=== PATIENT | female | born 1945 | race Caucasian/White ===

== ENCOUNTER → 2023-10-09 14:13 | Outpatient (REF) | payer OTHER, SELFPAY | LOC: WOUND 14:13 | PROVIDERS: ATTENDING PHYSICIAN Surgery; REFERRING PHYSICIAN Internal Medicine | DX: L97.811 Non-pressure chronic ulcer of other part of right lower leg limited to breakdown of skin (principal); I25.10 Atherosclerotic heart disease of native coronary artery without angina pectoris; E11.65 Type 2 diabetes mellitus with hyperglycemia; D86.9 Sarcoidosis, unspecified; Z79.52 Long term (current) use of systemic steroids | CPT/HCPCS: 99212 ==

== ENCOUNTER → 2023-11-04 06:41 | Outpatient (REF) | payer OTHER, SELFPAY | LOC: PAVMRI 06:41 | PROVIDERS: ATTENDING PHYSICIAN Pain Medicine Interventional Pain Medicine; FAMILY PHYSICIAN Internal Medicine | DX: M54.16 Radiculopathy, lumbar region (principal) | CPT/HCPCS: 72148 ==

== ENCOUNTER → 2024-01-27 12:41 | Outpatient (REF) | payer OTHER, SELFPAY | LOC: HWRCS 12:41 | PROVIDERS: ATTENDING PHYSICIAN Internal Medicine Cardiovascular Disease; FAMILY PHYSICIAN Internal Medicine | DX: I65.23 Occlusion and stenosis of bilateral carotid arteries (principal); Z95.5 Presence of coronary angioplasty implant and graft; I50.32 Chronic diastolic (congestive) heart failure; R06.02 Shortness of breath | CPT/HCPCS: 93306 ==

== ENCOUNTER 2024-02-04 11:14 | Emergency (ER) | payer OTHER, SELFPAY ==
[2024-02-04 11:17] VITALS: BP 161/68
--- NOTE | 2024-02-04 12:08 | ED.GENMED ---
History of Present Illness
<Hayley Pena PA-C - Last Filed: 02/04/24 13:32>
General
Chief Complaint: Musculo-Skeletal Complaint
Source: patient
Exam Limitations: none
Time Seen by Provider: 02/04/24 12:08
Nursing documentation reviewed up to this point in time: agreed with
Travel History
Have you had any contact with someone who has COVID-19?: No
Do you have any symptoms of coronavirus? Fever > 100 degrees, chills, cough, shortness of breath, sore throat, loss of taste or smell, muscle aches, or headache?: No
History of Present Illness
History of Present Illness:
78-year-old female with past medical history of A-fib on Eliquis, osteoarthritis, left hip fracture status post hip replacement, CHF, COPD chronically on oxygen, CAD resenting emergency department today with right hip pain. Patient states that 2
days ago, she was walking when suddenly out of nowhere she started to get right hip pain. Patient now states that she has significant pain when walking and has some trouble walking. Patient does not use a wheelchair at baseline but does present
today from triage in wheelchair. Patient denies any falls, any trauma to the hip. Patient denies any fevers or chills, lightheadedness, dizziness, rash.
Past History
<Hayley Pena PA-C - Last Filed: 02/04/24 13:32>
Past History
ED Past Medical History: Arrthythmia (Atrial fibrillation), CAD, HTN and Other (Sarcoidosis)
ED Past Surgical History: Appendectomy and Cardiac (Angioplasty with stents)
Social History
Tobacco: Former smoker
Review of Systems
<Hayely Pena PA-C - Last Filed: 02/04/24 13:32>
Review of Systems
All Other Systems: ROS reviewed and negative except as documented in HPI and ROS
Phy Exam
<Hayley Pena PA-C - Last Filed: 02/04/24 13:32>
Physical Exam
Physical Exam:
General: Patient is well appearing and in no acute distress; non-toxic
Skin: Warm and dry, no rashes or lesions, no areas of ecchymosis overlying the right hip or right flank region
Head: Normocephalic, atraumatic
Eyes: Sclera non-icteric. EOMs intact. PERRLA.
Cardiac: Regular rate.
Peripheral Vascular: No lower extremity swelling or edema. 2+ dorsalis pedis pulses b/l.
Pulm: Normal respiratory effort, chronically on oxygen via nasal cannula
Musculoskeletal: Pain with passive adduction, abduction, internal and external rotation of right hip. No bony deformities. No palpable bony tenderness.
Neuro: CN II-XII intact, no focal neurologic deficits.
Psychiatric: Appropriate mood and affect.
Course
<Hayley Pena PA-C - Last Filed: 02/04/24 13:32>
Orders/Labs/Results
Orders:
Orders
02/04/24 11:19
Hip, Right 2-3 Views [CR Hip - RT w/wo Pel 2-3 Vw*] Urgent
Comment:
Reason For Exam: pain
Include a pelvis x-ray?: Yes
02/04/24 12:46
Case Management Consult ONCE
Case Management Consult: VN/Home Care
02/04/24 12:49
PT Consult [Pt Eval And Treat] Urgent
Activity Level: Ambulate
Vital Signs
Initial and Last Documented VS:
Initial Vital Signs
Temp Pulse Resp BP Pulse Ox
97.9 F 91 18 161/68 95
02/04/24 11:17 02/04/24 11:17 02/04/24 11:17 02/04/24 11:17 02/04/24 11:17
Last Documented Vital Signs
Temp Pulse Resp BP Pulse Ox
97.9 F 91 18 161/68 95
02/04/24 11:17 02/04/24 11:17 02/04/24 11:17 02/04/24 11:17 02/04/24 11:17
<Dilan Askew DO - Last Filed: 02/04/24 13:12>
Orders/Labs/Results
Orders:
Orders
02/04/24 11:19
Hip, Right 2-3 Views [CR Hip - RT w/wo Pel 2-3 Vw*] Urgent
Comment:
Reason For Exam: pain
Include a pelvis x-ray?: Yes
02/04/24 12:46
Case Management Consult ONCE
Case Management Consult: VN/Home Care
02/04/24 12:49
PT Consult [Pt Eval And Treat] Urgent
Activity Level: Ambulate
Vital Signs
Initial and Last Documented VS:
Initial Vital Signs
Temp Pulse Resp BP Pulse Ox
97.9 F 91 18 161/68 95
02/04/24 11:17 02/04/24 11:17 02/04/24 11:17 02/04/24 11:17 02/04/24 11:17
Last Documented Vital Signs
Temp Pulse Resp BP Pulse Ox
97.9 F 91 18 161/68 95
02/04/24 11:17 02/04/24 11:17 02/04/24 11:17 02/04/24 11:17 02/04/24 11:17
<Hayley Pena PA-C - Last Filed: 02/04/24 13:32>
MDM/Problems Addressed
Differential Diagnosis Includes:
ddx include osteoarthritis, musculoskeletal sprain/sprain, lumbar radiculopathy, bursitis
MDM/Problems Addressed:
right hip pain
Chronic conditions affecting care:
Asthma, COPD,CAD, GERD, chronic anemia,
<Hayley Pena PA-C - Last Filed: 02/04/24 13:32>
*Radiology
Radiology exam reviewed: preliminary read by ED provider (no acute fracture or dislocation)
*Pulse Oximetry
Patient hypoxic: no
*Critical Care Note
Total Time (30-74mins, 75-104mins- exclusive of procedures): Not Applicable
Data Reviewed
Review of Other/Old Records Reveals: Records (Reviewed with patient and ER physician documentation from 02/06/2021)
Source: patient and records
Prescriptions/Medications Considered But Not Given:
Considered medication for pain however patient took oxycodone prior to arrival and declining further pain medication including Tylenol at this time
<Hayley Pena PA-C - Last Filed: 02/04/24 13:32>
Patient Management
Escalation/DeEscalation of care consider admission/obs:
78-year-old female with past medical history of A-fib on Eliquis, osteoarthritis, left hip fracture status post hip replacement, CHF, COPD chronically on oxygen, CAD resenting emergency department today with right hip pain. She did not have any
falls or any trauma. She has difficulty walking because of the pain. X-ray demonstrates a moderate osteoarthritis of the right hip but no evidence of fracture or dislocation. Patient made aware of results. Considering patient's ambulatory
dysfunction, I did offer physical therapy evaluation and case management evaluation considering patient is a high fall risk at this time. Patient declining these therapies and saying that her will help her ambulate at home. Advised patient
to follow-up with her orthopedist. Patient stable for discharge at this time
ED Attending Note
<Hayley Pena PA-C - Last Filed: 02/04/24 13:32>
-
Portions of this chart may have been created with voice recognition software.� Occasional wrong word or��sound alike� substitutions may have occurred due to the inherent limitations of voice recognition software.
<Dilan Askew DO - Last Filed: 02/04/24 13:12>
ED Attending Note
Patient seen and examined by attending physician: Yes
I performed a history and physical exam of patient and discussed management with resident, I reviewed resident's note and agree with documented findings and plan of care.: Yes
ED Attending Note:
I have reviewed and agree with patient treatment plan by Hayley Pena. My exam revealed 78-year-old female with full range of motion right hip, but with pain. She denies any fall or injury. She had a left hip fracture partial replacement. She
follows with Dr. Walter for pain management. No fracture seen. Family [facility] pain medicine and physical therapy evaluation.
Discharge Plan
Departure
Patient Disposition: Home (Routine Discharge)
Date of Disposition: 02/04/24
Time of Disposition: 13:08
Patient with high blood pressure during this ER visit?: Yes
Discharge Problem:
Arthritis pain of hip
Instructions: Hip pain in adults, BLOOD PRESSURE, Fall Prevention for Older Adults
Prescriptions:
No Action
omeprazole 20 MG capsule,delayed release(DR/EC)
20 mg PO Q48H
diltiazem HCl 240 MG capsule,extended release 24hr
240 mg PO DAILY 0RF
montelukast 10 MG tablet
10 mg PO HS
cholecalciferol (vitamin D3) [Vitamin D3] 1,000 UNIT capsule
2,000 unit PO DAILY
metformin 1,000 tablet extended release 24hr
1,000 mg PO BID
Hold Instructions: Resume on 12/11/22.
prednisone 10 MG tablet
10 mg PO DAILY
azithromycin 250 MG tablet
250 mg PO DAILY
albuterol sulfate [Ventolin HFA] 90 MCG/PUFF HFA aerosol inhaler
2 puff inhalation Q4HPRN PRN (Reason: SOB)
escitalopram oxalate 10 MG tablet
1 tab PO DAILY
Incruse Ellipta 62.5 MCG blister with device
62.5 mcg inhalation DAILY
atorvastatin 20 MG tablet
20 mg PO DAILY
ipratropium bromide 1 SPRAY spray,non-aerosol
2 puff intranasal BID
alendronate 70 MG tablet
70 mg PO WE
ascorbic acid (vitamin C) [Vitamin C] 500 MG tablet
500 mg PO DAILY
ferrous gluconate 236 MG tablet
65 mg PO BID
diltiazem HCl 120 MG capsule,extended release 24hr
120 mg PO QPM
guaifenesin [Mucus Relief ER] 600 MG tablet extended release 12hr
1,200 mg PO BID
fluticasone propionate [Flonase Allergy Relief] 50 mcg/actuation [place],Suspension
1 spray INTRANASAL BIDPRN PRN (Reason: allergies)
budesonide-formoterol [Symbicort] 160-4.5 mcg/actuation Hfa Aerosol Inhaler
2 puff INHALATION BID
roflumilast [Daliresp] 500 mcg Tablet
500 mcg PO DAILY
Eliquis 5 MG tablet
5 mg PO BID
Rx Instructions:
clopidogrel 75 mg Tablet
75 mg PO DAILY Qty: 60 0RF
Referrals:
Fabiano Calderón MD [Active] - Call in 1-3 days for appt
Devyn Rodriguez DO [Family Provider] -
Activity Restrictions/Additional Instructions:
Please call your orthopedist in the coming days to schedule appointment for evaluation.
Please take Tylenol as needed for pain control.
Interventions
Interventions:
*Risk Screen - Suicide Last Done: 02/04/24 11:18
*General Assessment Last Done: 02/04/24 11:18
*Neglect/Abuse Screening Last Done: 02/04/24 11:18
ED- Fall Risk Assessment Last Done: 02/04/24 13:06
*ED COVID-19 Vaccine History Last Done: 02/04/24 11:18
*Nursing Disposition Last Done: 02/04/24 13:18
ED-Musculoskeletal Assessment Last Done: 02/04/24 13:06
Discharge Date and Time
Print Language: OCCITAN
--- NOTE | 2024-02-04 13:19 | CM ---
CM was consulted for home PT vs. SNF. Patient has declined and has been discharged to home. CM will be available as needed.
== END 2024-02-04 13:18 | disposition home or self-care (01) ==
LOC: EMR 11:14
PROVIDERS: EMERGENCY PHYSICIAN Emergency Medicine; FAMILY PHYSICIAN Internal Medicine
DX: M25.551 Pain in right hip (principal); M16.11 Unilateral primary osteoarthritis, right hip; R26.2 Difficulty in walking, not elsewhere classified; I48.91 Unspecified atrial fibrillation; I25.10 Atherosclerotic heart disease of native coronary artery without angina pectoris; I11.0 Hypertensive heart disease with heart failure; I50.9 Heart failure, unspecified; J44.89 Other specified chronic obstructive pulmonary disease; K21.9 Gastro-esophageal reflux disease without esophagitis; D86.9 Sarcoidosis, unspecified; D64.9 Anemia, unspecified; Z96.642 Presence of left artificial hip joint; Z95.5 Presence of coronary angioplasty implant and graft; Z99.81 Dependence on supplemental oxygen; Z87.891 Personal history of nicotine dependence; Z79.01 Long term (current) use of anticoagulants; Z88.1 Allergy status to other antibiotic agents
CPT/HCPCS: 99283; 73502

== ENCOUNTER → 2024-02-17 13:05 | Outpatient (REF) | payer OTHER, SELFPAY | LOC: RAD 13:05 | PROVIDERS: ATTENDING PHYSICIAN Surgery Vascular Surgery; FAMILY PHYSICIAN Internal Medicine | DX: I65.23 Occlusion and stenosis of bilateral carotid arteries (principal) | CPT/HCPCS: 93880 ==

== ENCOUNTER → 2024-02-20 09:18 | Outpatient (REF) | payer OTHER, SELFPAY ==
[2024-02-20 12:28] LABS: Blood Urea Nitrogen 14 mg/dl (7-17); Calcium 9.4 mg/dl (8.4-10.2); Carbon Dioxide 28 mmol/L (22-30); Chloride 104 mmol/L (98-107); Glucose 157 mg/dl (70-99); Potassium 4.4 mmol/L (3.5-5.1); Sodium 140 mmol/L (135-145); eGFR > 60.00
== END ==
LOC: HWLAB 09:18
PROVIDERS: ATTENDING PHYSICIAN Nurse Practitioner; FAMILY PHYSICIAN Internal Medicine
DX: I50.9 Heart failure, unspecified (principal)
CPT/HCPCS: 36415; 80048

== ENCOUNTER → 2024-04-07 10:40 | Outpatient (REF) | payer OTHER, SELFPAY ==
[2024-04-07 13:19] LABS: Blood Urea Nitrogen 24 mg/dl (7-17); Calcium 9.9 mg/dl (8.4-10.2); Carbon Dioxide 29 mmol/L (22-30); Chloride 101 mmol/L (98-107); Glucose 191 mg/dl (70-99); Potassium 4.3 mmol/L (3.5-5.1); Sodium 137 mmol/L (135-145); eGFR > 60.00
== END ==
LOC: HWLAB 10:40
PROVIDERS: ATTENDING PHYSICIAN Nurse Practitioner; FAMILY PHYSICIAN Internal Medicine
DX: I50.9 Heart failure, unspecified (principal)
CPT/HCPCS: 36415; 80048

== ENCOUNTER → 2024-04-20 11:48 | Outpatient (REF) | payer OTHER, SELFPAY | LOC: PAVMRI 11:48 | PROVIDERS: ATTENDING PHYSICIAN Physician Assistant; FAMILY PHYSICIAN Physical Medicine & Rehabilitation | DX: M25.551 Pain in right hip (principal) | CPT/HCPCS: 73721 ==

== ENCOUNTER → 2024-07-27 09:34 | Outpatient (REF) | payer OTHER, SELFPAY ==
[2024-07-27 12:45] LABS: Blood Urea Nitrogen 21 mg/dl (7-17); Calcium 10.2 mg/dl (8.4-10.2); Carbon Dioxide 26 mmol/L (22-30); Chloride 104 mmol/L (98-107); Glucose 163 mg/dl (70-99); Potassium 4.6 mmol/L (3.5-5.1); Sodium 142 mmol/L (135-145); eGFR > 60.00
== END ==
LOC: HWLAB 09:34
PROVIDERS: ATTENDING PHYSICIAN Internal Medicine Cardiovascular Disease; FAMILY PHYSICIAN Internal Medicine
DX: I50.20 Unspecified systolic (congestive) heart failure (principal)
CPT/HCPCS: 36415; 80048

== ENCOUNTER → 2024-08-19 12:56 | Outpatient (REF) | payer OTHER, SELFPAY | LOC: DHVS 12:56 | PROVIDERS: ATTENDING PHYSICIAN Registered Nurse; FAMILY PHYSICIAN Internal Medicine | DX: I65.23 Occlusion and stenosis of bilateral carotid arteries (principal) | CPT/HCPCS: 93880 ==

== ENCOUNTER → 2024-11-19 13:50 | Outpatient (REF) | payer OTHER, SELFPAY | LOC: HWRCS 13:50 | PROVIDERS: ATTENDING PHYSICIAN Internal Medicine Cardiovascular Disease; FAMILY PHYSICIAN Internal Medicine | DX: I50.20 Unspecified systolic (congestive) heart failure (principal) | CPT/HCPCS: 93306 ==

== ENCOUNTER → 2025-02-16 09:27 | Outpatient (REF) | payer OTHER, SELFPAY ==
[2025-02-16 12:58] LABS: % Eosinophils 5.1 % (0-6); % Immature Granulocytes 0.9 % (0-0.5); % Lymphocytes 27.1 % (20.5-51.1); % Monocytes 8.4 % (1.7-9.3); % Neutrophils 57.5 % (42.2-75.2); Absolute Basophils 0.1 10^3/uL (0-0.2); Absolute Eosinophils 0.6 10^3/uL (0-0.7); Absolute Immature Granulocytes 0.1 10^3/uL (0-0.05); Absolute Lymphocytes 2.9 10^3/uL (1.2-3.4); Absolute Monocytes 0.9 10^3/uL (0.1-0.6); Absolute Neutrophils 6.3 10^3/uL (1.4-6.5); Hematocrit 38.5 % (37.0-47.0); Hemoglobin 12.3 g/dL (12.0-16.0); Mean Corp Hgb Conc. 31.9 g/dL (33.0-37.0); Mean Corpuscular Hgb 31.9 pg (27.0-31.0); Mean Corpuscular Volume 99.7 fL (81.0-99.0); Mean Platelet Volume 9.3 fL (7.4-10.4); Nucleated Red Blood Cells % 0 %; Platelet Count 416 10^3/uL (130-400); Red Blood Cell Count 3.86 10^6/uL (4.20-5.40); Red Cell Dist. Width 13.5 % (11.5-14.5); White Blood Cell Count 10.9 10^3/uL (4.8-10.8)
[2025-02-16 13:38] LABS: Microalbumin, Random Urine 1.5 mg/dl (0.6-1.7); Microalbumin/creatinine Ratio 9.3 mg/g
[2025-02-16 13:48] LABS: ALT (SGPT) 34 U/L (0-35); AST (SGOT) 33 U/L (14-36); Albumin 3.9 g/dl (3.5-5.0); Alkaline Phosphatase 45 U/L (38-126); Blood Urea Nitrogen 24 mg/dl (7-17); Calcium 9.5 mg/dl (8.4-10.2); Carbon Dioxide 25 mmol/L (22-30); Chloride 105 mmol/L (98-107); Creatine Phosphokinase 44 U/L (30-135); Glucose 154 mg/dl (70-99); HDL Cholesterol 53 mg/dl; LDL Cholesterol, Calculated 85 mg/dl; Potassium 4.2 mmol/L (3.5-5.1); Sodium 140 mmol/L (135-145); Total Bilirubin 0.5 mg/dl (0.2-1.3); Total Cholesterol 164 mg/dl (50-199); Total Protein 6.2 g/dl (6.3-8.2); Triglyceride 133 mg/dl (10-149); Very Low Density Lipoprotein 26 mg/dl (0-30); eGFR > 60.00
[2025-02-16 14:29] LABS: TSH 1.55 uIU/ml (0.47-4.68)
== END ==
LOC: HWRAD 09:27
PROVIDERS: ATTENDING PHYSICIAN Internal Medicine
DX: M48.061 Spinal stenosis, lumbar region without neurogenic claudication (principal); E11.69 Type 2 diabetes mellitus with other specified complication; E78.5 Hyperlipidemia, unspecified; J44.9 Chronic obstructive pulmonary disease, unspecified; I10 Essential (primary) hypertension
CPT/HCPCS: 36415; 72110; 80053; 80061; 82043; 82550; 82570; 83036; 84443; 85025

== ENCOUNTER → 2025-02-25 13:07 | Outpatient (REF) | payer OTHER, SELFPAY | LOC: DHVS 13:07 | PROVIDERS: ATTENDING PHYSICIAN Surgery Vascular Surgery | DX: I65.23 Occlusion and stenosis of bilateral carotid arteries (principal) | CPT/HCPCS: 93880 ==

== ENCOUNTER → 2025-04-14 08:04 | Outpatient (REF) | payer OTHER, SELFPAY | LOC: WOUND 08:04 | PROVIDERS: ATTENDING PHYSICIAN Surgery; FAMILY PHYSICIAN Internal Medicine | DX: S61.401A Unspecified open wound of right hand, initial encounter (principal); E11.65 Type 2 diabetes mellitus with hyperglycemia; D86.0 Sarcoidosis of lung; I48.0 Paroxysmal atrial fibrillation; E11.69 Type 2 diabetes mellitus with other specified complication; Z79.52 Long term (current) use of systemic steroids; X58.XXXA Exposure to other specified factors, initial encounter | CPT/HCPCS: 97597; 99213 ==

== ENCOUNTER → 2025-04-21 14:26 | Outpatient (REF) | payer OTHER, SELFPAY | LOC: WOUND 14:26 | PROVIDERS: ATTENDING PHYSICIAN Surgery; FAMILY PHYSICIAN Internal Medicine | DX: S61.401A Unspecified open wound of right hand, initial encounter (principal); E11.65 Type 2 diabetes mellitus with hyperglycemia; D86.0 Sarcoidosis of lung; I48.0 Paroxysmal atrial fibrillation; E11.69 Type 2 diabetes mellitus with other specified complication; Z79.52 Long term (current) use of systemic steroids; X58.XXXA Exposure to other specified factors, initial encounter | CPT/HCPCS: 99213 ==

== ENCOUNTER → 2025-05-05 10:51 | Outpatient (REF) | payer OTHER, SELFPAY | LOC: WOUND 10:51 | PROVIDERS: ATTENDING PHYSICIAN Surgery; FAMILY PHYSICIAN Internal Medicine | DX: S61.401A Unspecified open wound of right hand, initial encounter (principal); E11.65 Type 2 diabetes mellitus with hyperglycemia; D86.0 Sarcoidosis of lung; I48.0 Paroxysmal atrial fibrillation; E11.69 Type 2 diabetes mellitus with other specified complication | CPT/HCPCS: 99213 ==

== ENCOUNTER → 2025-05-26 13:43 | Outpatient (REF) | payer OTHER, SELFPAY | LOC: WOUND 13:43 | PROVIDERS: ATTENDING PHYSICIAN Surgery; FAMILY PHYSICIAN Internal Medicine | DX: S61.401A Unspecified open wound of right hand, initial encounter (principal); E11.65 Type 2 diabetes mellitus with hyperglycemia; D86.0 Sarcoidosis of lung; I48.0 Paroxysmal atrial fibrillation; E11.69 Type 2 diabetes mellitus with other specified complication; Z79.52 Long term (current) use of systemic steroids | CPT/HCPCS: 99212 ==

== ENCOUNTER → 2025-08-05 10:14 | Outpatient (REF) | payer OTHER, SELFPAY | LOC: HWRAD 10:14 | PROVIDERS: ATTENDING PHYSICIAN Nurse Practitioner; FAMILY PHYSICIAN Internal Medicine | DX: N95.2 Postmenopausal atrophic vaginitis (principal); B37.31 Acute candidiasis of vulva and vagina | CPT/HCPCS: 76770; 76830; 76856 ==

== ENCOUNTER → 2025-09-02 13:24 | Outpatient (REF) | payer OTHER, SELFPAY | LOC: RAD 13:24 | PROVIDERS: ATTENDING PHYSICIAN Registered Nurse; FAMILY PHYSICIAN Internal Medicine | DX: I65.23 Occlusion and stenosis of bilateral carotid arteries (principal) | CPT/HCPCS: 93880 ==